=== PATIENT | male | born 1990 | race African-American/Black ===

== ENCOUNTER 2024-12-30 12:06 | Emergency (ER) | payer MEDICAID, OTHER ==
[~2024-12-30] VITALS: Ht 177.8 cm; Wt 82.0 kg
[2024-12-30 12:17] VITALS: O2SAT 99
[2024-12-30 14:13] LABS: HEMATOCRIT. 42.7 % (42.0-52.0); HEMOGLOBIN. 14.0 g/dL (14.0-18.0); MEAN PLATELET VOLUME 8.9 fl (7.4-10.4); PLATELET 280 x1000/uL (130-400); RED BLOOD CELL COUNT 5.10 mill/uL (4.7-6.1); RED CELL DISTRIBUTION WIDTH 13.5 % (11.6-14.6)
[2024-12-30 14:23] LABS: CREATININE 1.1 mg/dL (0.6-1.3); UREA NITROGEN BLOOD 8 mg/dL (9-23)
[2024-12-30 14:24] LABS: ETHANOL BLOOD < 10 mg/dL (<10)
[2024-12-30 15:43] LABS: EOSINOPHILS % MANUAL 1.0 % (0.0-5.0); LYMPHOCYTES % MANUAL 31.0 % (20.0-50.0); MONOCYTES % MANUAL 18.0 % (2.0-8.0); NEUTROPHILS % MANUAL 50.0 % (45.0-75.0); PLATELET ESTIMATE NORMAL
[2024-12-30 16:55] LABS: *AMPHETAMINES SCREEN URINE NEGATIVE (NEGATIVE); *BARBITURATES SCREEN URINE NEGATIVE (NEGATIVE); *BENZODIAZEPINES SCREEN URINE NEGATIVE (NEGATIVE); *COCAINE SCREEN URINE NEGATIVE (NEGATIVE); METHADONE URINE SCREEN NEGATIVE (NEGATIVE); OPIATES URINE SCREEN NEGATIVE (NEGATIVE); PHENCYCLIDINE URINE SCREEN NEGATIVE (NEGATIVE)
[2024-12-30 16:56] LABS: CANNABINOID URINE SCREEN NEGATIVE (NEGATIVE); ECSTASY MDMA SCREEN URINE NEGATIVE (NEGATIVE)
[2024-12-30] MEDS: IBUPROFEN 600MG TABLET PO ONE (22:30)
[2025-01-01 11:22] VITALS: BP 119/71; PULSE 78; RESP 14; TEMP 36.8; O2SAT 100
== END 2025-01-01 11:21 | disposition home or self-care (01) ==
LOC: ER 12:06
DX: R45.851 Suicidal ideations (principal); U07.1 COVID-19; F32.A Depression, unspecified; F20.9 Schizophrenia, unspecified; F17.200 Nicotine dependence, unspecified, uncomplicated; F14.90 Cocaine use, unspecified, uncomplicated; Z79.899 Other long term (current) drug therapy
CPT/HCPCS: 36415; 80048; 80305; 80307; 80320; 80329; 85025; 87426; 99285; G0480